=== PATIENT | female | born 1990 | race African-American/Black ===

== ENCOUNTER 2020-02-11 15:47 | Emergency (ER) | payer OTHER ==
[~2020-02-11] VITALS: Ht 165.1 cm; Wt 66.5 kg
[~2020-02-11 15:47] MED LIST: DESO1TAB4 PO
[2020-02-11 15:55] VITALS: BP 110/71
[2020-02-11] MEDS ORDERED: METH4TAB2 PO (16:14)
--- NOTE | 2020-02-11 16:15 | PHYS DOC ---
Past History Past Medical History: Other Additional Past Medical Histor: MOOD SWINGS Past Surgical History: No Surgical History Additional Smoking Information: NICOTINE PATCH X 1 WEEK Alcohol Use: Rarely Drug Use: None Adult General Chief Complaint Chief Complaint: SKIN RASH/ABSCESS [facility] HPI Patient is a healthy 29-year-old female who presents for acute on chronic skin rash to medial fold of left upper eyelid. This has been going on ever since patient was . Patient's [employer]ESS [employer]INEER thought this was a fungal infection and as such, prescribed an antifungal cream. Patient has intermittently rubbed said cream on area of concern. Patient reports current episode started 4 weeks ago. She has been applying antifungal cream daily without significant relief. Reports pruritus and raised area of concern on eyelid without any other ocular abnormalities or changes. No fever, no COVID-19 contacts, no other concerning signs or symptoms Review of Systems Review of Systems Fourteen body systems of review of systems have been reviewed. See HPI for pertinent positives and negative responses, other garham all other systems are negative, non-pertinent or non-contributory Allergies Allergies Allergies Coded Allergies Type Severity Reaction Last Updated Verified No Known Drug Allergies 05/06/14 No Physical Exam Physical Exam Constitutional: Well developed, well nourished, no acute distress, non-toxic appearance. HENT: Normocephalic, atraumatic, bilateral external ears normal, oropharynx moist, no oral exudates, nose normal. Eyes: PERRLA, EOMI, conjunctiva normal, no discharge. Skin changes consistent with contact dermatitis of left upper eyelid not involving eyelashes and/or mucosa Neck: Normal range of motion, no tenderness, supple, no stridor. Cardiovascular: Heart rate regular, sinus rhythm, no murmurs rubs or gallops Lungs & Thorax: Bilateral breath sounds clear to auscultation Abdomen: Bowel sounds normal, soft, no tenderness, no masses, no pulsatile masses. Nonsurgical abdomen, no peritoneal signs Skin: Warm, dry, no erythema, no rash. Back: No tenderness, no CVA tenderness. Extremities: No tenderness, no cyanosis, no clubbing, ROM intact, no edema. Neurologic: Alert and oriented X 3, grossly normal motor & sensory function, no focal deficits noted. Psychologic: Affect normal, judgement normal, mood normal. Current Patient Data Vital Signs Vital Signs Date Time Temp Pulse Resp B/P (MAP) Pulse Ox O2 Delivery O2 Flow Rate FiO2 02/11/20 15:55 97.9 75 20 110/71 (84) 100 Room Air EKG EKG [] Radiology/Procedures Radiology/Procedures [] Heart Score Risk Factors: Risk Factors: DM, Current or recent (<one month) smoker, HTN, HLP, family history of CAD, obesity. Risk Scores: Risk Factors: DM, Current or recent (<one month) smoker, HTN, HLP, family history of CAD, obesity. Course & Med Decision Making Course & Med Decision Making Pertinent Labs and Imaging studies reviewed. (See chart for details) I discussed with patient most likely diagnosis of irritant contact dermatitis from prolonged antifungal use on a nonfungal area of concern I advised patient to discontinue antifungal cream immediately, I discussed need for supportive care practices and avoiding potential allergens such as make-up, new soap etc. Patient is currently on antihistamine which is appropriate. I offered patient short steroid burst for symptomatic relief which she accepted Patient has good access to care in outpatient setting, I feel close PCP follow- up within upcoming week for repeat evaluation is acceptable at this time given well-appearing patient who is hemodynamically stable and tolerating p.o. intake Strict return precautions were discussed with good understanding by patient, all questions and concerns addressed prior to ER departure in stable condition Dragon Disclaimer Dragon Disclaimer This electronic medical record was generated, in whole or in part, using a voice recognition dictation system. Departure Departure: Impression: Primary Impression: Irritant contact dermatitis Disposition: HOME SELF CARE/HOMELESS Condition: STABLE Referrals: PCP,NO (PCP) Patient Instructions: Contact Dermatitis Additional Instructions: As discussed prior to ER discharge, please call your primary care physician first thing Thursday morning to schedule outpatient follow-up in upcoming 2 to 14 days Please take prescribed steroid pack to completion Please discontinue previously prescribed antifungal you have been using on your left eyelid If any concerning signs or symptoms present prior to outpatient follow-up please do not hesitate to report back for repeat examination It was a pleasure to take care of you and I wish you a speedy recovery Scripts Methylprednisolone (MEDROL) 4 Mg Tab.ds.pk 1 PKG PO UD for DERMATITIS, #1 PKG Prov: BREANNE SAWYER DO 02/11/20 BREANNE SAWYER DO Feb 11, 2020 16:15
== END 2020-02-11 16:19 | disposition home or self-care (01) ==
LOC: ER 15:47
DX: L24.9 Irritant contact dermatitis, unspecified cause (principal); F17.220 Nicotine dependence, chewing tobacco, uncomplicated
CPT/HCPCS: 99283